=== PATIENT | female | born 1990 | race Caucasian/White ===

== ENCOUNTER 2023-09-16 13:23 | Emergency (ER) | payer SELFPAY ==
[~2023-09-16] VITALS: Ht 165.1 cm; Wt 127.3 kg
[~2023-09-16 13:23] MED LIST: IBU800 M1 PO; NORCO 325 MG-51 TAB PO; ZOFRAN ODT4 MG PO
[2023-09-16 13:26] VITALS: TEMP 97.9
[2023-09-16] MEDS ORDERED: fentaNYL 50 MCG/ML 2 ML VIAL IV ONE (13:30)
[2023-09-16] MEDS ORDERED: Ondansetron 4 MG/2 ML VIAL IV ONE (14:00)
[2023-09-16] MEDS ORDERED: Lido/EPI/Tetrac Gel 3 ML SYRINGE TOP ONE (14:15)
[2023-09-16 15:25] VITALS: BP 131/78; PULSE 85
== END 2023-09-16 14:57 | disposition home or self-care (01) ==
LOC: COL.ER 13:23
DX: S93.402A Sprain of unspecified ligament of left ankle, initial encounter (principal); S93.401A Sprain of unspecified ligament of right ankle, initial encounter; S80.212A Abrasion, left knee, initial encounter; S80.211A Abrasion, right knee, initial encounter; W10.9XXA Fall (on) (from) unspecified stairs and steps, initial encounter
CPT/HCPCS: J2405; J3010